=== PATIENT | male | born 1980 | race African-American/Black ===

== ENCOUNTER 2016-11-24 01:27 | Emergency (ER) | payer SELFPAY ==
[~2016-11-24] VITALS: Ht 160 cm; Wt 63.5 kg
[~2016-11-24 01:27] MED LIST: FLUT1DIS5 IH; VENTOLIN HFA18 GM IH
[2016-11-24 01:45] VITALS: BP 158/86
[2016-11-24] MEDS ORDERED: IPRATRPIUM/ALBUTEROL 0.5/2.5MG 3 ML NEBU. NEB ONE (02:30)
[2016-11-24] MEDS ORDERED: PROAIR HFA8.5 GM INH (02:35)
[2016-11-24] MEDS ORDERED: PRED-220 PO (02:35)
--- NOTE | 2016-11-24 02:35 | PHYS DOC ---
Past Medical History Past Medical History: Asthma Past Surgical History: No Surgical History Alcohol Use: Rarely Drug Use: None Adult General Chief Complaint Chief Complaint: ASTHMA HPI HPI Patient is a 36 year old male who presents with complaint of shortness of breath. Patient states his symptoms have been worsening over the past 2-3 days. Patient states that over the past month has had worsening asthma symptoms off and on. Patient states that he stopped smoking one month ago. Patient states that he has been using albuterol and Symbicort but states that this has not been helping with his symptoms. Patient denies any chest pain. The patient also has not had any fevers. Patient states that he has had clearish productive cough. Denies nausea or vomiting. Review of Systems Review of Systems Constitutional: Denies fever or chills [] Eyes: Denies change in visual acuity, redness, or eye pain [] HENT: Denies nasal congestion or sore throat [] Respiratory: Cough, wheezing, shortness of breath [] Cardiovascular: Denies chest pain or edema [] GI: Denies abdominal pain, nausea, vomiting, bloody stools or diarrhea [] : Denies dysuria or hematuria [] Musculoskeletal: Denies back pain or joint pain [] Integument: Denies rash or skin lesions [] Neurologic: Denies headache, focal weakness or sensory changes [] Current Medications Current Medications Current Medications Medications (Trade) Dose Ordered Sig/Alis Start Time Stop Time Status Last Admin Dose Admin Albuterol/ Ipratropium (Duoneb) 3 ml 1X ONCE 11/24/16 02:30 11/24/16 02:31 DC 11/24/16 02:09 3 ML Allergies Allergies Allergies Coded Allergies Type Severity Reaction Last Updated Verified Penicillins Allergy Intermediate rash 07/31/14 Yes Physical Exam Physical Exam Constitutional: Alert, afebrile, appears in mild to moderate respiratory distress. [] HENT: Normocephalic, atraumatic, bilateral external ears normal, oropharynx moist, no oral exudates, nose normal. [] Eyes: PERRLA, EOMI, conjunctiva normal, no discharge. [] Neck: Normal range of motion, no tenderness, supple, no stridor. [] Cardiovascular:Heart rate regular rhythm, no murmur [] Lungs & Thorax: Prolonged expiratory phase, expiratory wheezes bilaterally, no rales [] Abdomen: Bowel sounds normal, soft, no tenderness, no masses, no pulsatile masses. [] Skin: Warm, dry, no erythema, no rash. [] Back: No tenderness, no CVA tenderness. [] Extremities: No tenderness, no cyanosis, no clubbing, ROM intact, no edema. [] Neurologic: Alert and oriented X 3, normal motor function, normal sensory function, no focal deficits noted. [] Current Patient Data Vital Signs Vital Signs Date Time Temp Pulse Resp B/P (MAP) Pulse Ox O2 Delivery O2 Flow Rate FiO2 11/24/16 02:09 99 Room Air 11/24/16 01:45 98.2 74 18 98.2 EKG EKG Not performed [] Radiology/Procedures Radiology/Procedures Not performed [] Course & Med Decision Making Course & Med Decision Making Pertinent Labs and Imaging studies reviewed. (See chart for details) Patient was given a DuoNeb breathing treatment in the emergency department. On reevaluation, patient states his symptoms have significantly improved. On re- auscultation, patient has faint extremity wheezes and significantly improved air movement. The patient will be discharged to restart a prednisone taper. Also recommended use of albuterol 2-4 puffs every 4 hours on schedule while awake for the next 2 days, then to use albuterol 2-4 puffs every 4 hours as needed after that. Advised follow-up with primary doctor in 5-7 days. Advised return to the emergency department for any worsening symptoms. Patient voiced understanding and in agreement with treatment plan. Dragon Disclaimer Dragon Disclaimer This electronic medical record was generated, in whole or in part, using a voice recognition dictation system. Departure Departure Impression: Primary Impression: Asthma exacerbation Disposition: 01 HOME, SELF-CARE Condition: IMPROVED Referrals: NO PCP (PCP) Patient Instructions: Asthma, Adult Additional Instructions: You will be placed back on prednisone for treatment of the inflammation in your lungs. Please use your albuterol inhaler as follows: 2-4 puffs every 4 hours while awake for the first 2 days, then 2-4 puffs every 4 hours as needed after that. Follow-up with your primary doctor in the next 5-7 days. Return to the emergency department for any worsening symptoms. Scripts Albuterol Sulfate (PROAIR HFA INHALER) 8.5 Gm Hfa.aer.ad 2 PUFF INH Q4HRS Y for SHORTNESS OF BREATH, #1 INHALER 0 Refills Prov: CHRIS DE LA FUENTE MD 11/24/16 Prednisone (PREDNISONE) 10 Mg Tablet 10 MG PO UD for PREDNISONE TAPER, #39 TAB 0 Refills Take 3 tablets by mouth twice a day for 3 days, then take 2 tablets by mouth twice a day for 3 days, then take 1 tablet by mouth twice a day for 3 days, then take 1 tablet by mouth daily x 3 days, then stop. Prov: CHRIS DE LA FUENTE MD 11/24/16 CHRIS DE LA FUENTE MD November 24, 2016 02:35
== END 2016-11-24 03:05 | disposition home or self-care (01) ==
LOC: ER 01:27
DX: J45.901 Unspecified asthma with (acute) exacerbation (principal); Z87.891 Personal history of nicotine dependence; Z88.0 Allergy status to penicillin
CPT/HCPCS: 94250; 94640; 99283; J7620

== ENCOUNTER 2018-02-13 14:11 | Emergency (ER) | payer SELFPAY ==
[~2018-02-13] VITALS: Ht 165.1 cm; Wt 63.5 kg
[~2018-02-13 14:11] MED LIST changes: +PRED-220 PO; +PROAIR HFA8.5 GM INH
[2018-02-13] MEDS ORDERED: predniSONE 20 MG TABLET PO ONE (15:00)
[2018-02-13] MEDS ORDERED: IPRATRPIUM/ALBUTEROL 0.5/2.5MG 3 ML NEBU. NEB ONE (15:00)
[2018-02-13 15:15] VITALS: BP 114/62
[2018-02-13] MEDS ORDERED: PRED20TA PO (15:31)
[2018-02-13] MEDS ORDERED: PROAIR HFA8.5 GM INH (15:31)
--- NOTE | 2018-02-13 15:31 | PHYS DOC ---
Past Medical History Past Medical History: Asthma Past Surgical History: No Surgical History Alcohol Use: Rarely Drug Use: None Adult General Chief Complaint Chief Complaint: ASTHMA HPI HPI Patient is a 37 year old male who presents with asthma exacerbation. Patient reports he is out of his albuterol inhaler. He reports he normally has some issues with his asthma whenever the weather is rainy. Review of Systems Review of Systems Constitutional: Denies fever or chills [] HENT: Denies nasal congestion or sore throat [] Respiratory: Short shortness of breath and wheezing Cardiovascular: No additional information not addressed in HPI [] All other systems were reviewed and found to be within normal limits, except as documented in this note. Current Medications Current Medications Current Medications Medications (Trade) Dose Ordered Sig/Alis Start Time Stop Time Status Last Admin Dose Admin Albuterol/ Ipratropium (Duoneb) 3 ml 1X ONCE 02/13/18 15:00 02/13/18 15:01 DC 02/13/18 14:59 3 ML Prednisone (Prednisone) 40 mg 1X ONCE 02/13/18 15:00 02/13/18 15:01 DC 02/13/18 15:15 40 MG Allergies Allergies Allergies Coded Allergies Type Severity Reaction Last Updated Verified Penicillins Allergy Intermediate rash 07/31/14 Yes Physical Exam Physical Exam Constitutional: Well developed, well nourished, no acute distress, non-toxic appearance. [] HENT: Normocephalic, atraumatic Eyes: PERRLA, EOMI, conjunctiva normal, no discharge. [] Neck: Normal range of motion, no tenderness, supple, no stridor. [] Cardiovascular:Heart rate regular rhythm, no murmur [] Lungs & Thorax: Bilateral breath sounds wheezing and diminished throughout Skin: Warm, dry, no erythema, no rash. [] Neurologic: Alert and oriented X 3, normal motor function, normal sensory function, no focal deficits noted. [] Psychologic: Affect normal, judgement normal, mood normal. [] Current Patient Data Vital Signs Vital Signs Date Time Temp Pulse Resp B/P (MAP) Pulse Ox O2 Delivery O2 Flow Rate FiO2 02/13/18 15:15 98.7 74 20 114/62 (79) 99 Room Air 98.7 EKG EKG [] Radiology/Procedures Radiology/Procedures [] Course & Med Decision Making Course & Med Decision Making Pertinent Labs and Imaging studies reviewed. (See chart for details) Lung sounds improved after nebulizer treatment. Patient reports he is feeling better. Plan: Albuterol Rx, prednisone Rx, follow up with PCP, return precautions reviewed Mihir Disclaimer Mihir Disclaimer This electronic medical record was generated, in whole or in part, using a voice recognition dictation system. Departure Departure Impression: Primary Impression: Asthma exacerbation Disposition: HOME, SELF-CARE Condition: IMPROVED Referrals: NO PCP (PCP) Patient Instructions: Asthma, Adult Scripts Prednisone (PREDNISONE) 20 Mg Tablet 40 MG PO DAILY, #10 TAB Prov: ISIS FOOTE APRN 02/13/18 Albuterol Sulfate (PROAIR HFA INHALER) 8.5 Gm Hfa.aer.ad 1 PUFF INH PRN Q6HRS PRN for SHORTNESS OF BREATH, #1 INHALER 0 Refills Prov: ISIS FOOTE APRN 02/13/18 Problem Qualifiers Primary Impression: Asthma exacerbation Asthma severity: moderate Asthma persistence: persistent Qualified Codes: J45.41 - Moderate persistent asthma with (acute) exacerbation [employer]OTE [employer] INTERVIEWER Feb 13, 2018 15:31
== END 2018-02-13 15:37 | disposition home or self-care (01) ==
LOC: ER 14:11
DX: J45.901 Unspecified asthma with (acute) exacerbation (principal); Z88.0 Allergy status to penicillin
CPT/HCPCS: 94640; 99283; J7512; J7620